=== PATIENT | male | born 1985 | race Caucasian/White ===

== ENCOUNTER 2016-10-31 19:57 | Emergency (ER) | payer BC, MEDICAID, SELFPAY ==
[2016-10-31] MEDS ORDERED: Clindamycin 150 MG CAP ONE ×2 (20:37→20:38)
[2016-10-31] MEDS ORDERED: Triple Antibiotic Ointment 15 GM TUBE ONE (20:37)
[2016-10-31] MEDS ORDERED: Triple Antibiotic Oint 1 GM Packet ONE (20:38)
== END 2016-10-31 20:55 | disposition home or self-care (01) ==
LOC: MADERS 19:57
DX: L03.116 Cellulitis of left lower limb (principal); L02.416 Cutaneous abscess of left lower limb; F17.210 Nicotine dependence, cigarettes, uncomplicated
CPT/HCPCS: 99283